=== PATIENT | female | born 1945 | race Caucasian/White ===

== ENCOUNTER 2016-08-24 08:28 | Day surgery (SDC) | payer MEDICARE, BC ==
[~2016-08-24 08:28] MED LIST: RINGERS SOLUTION,LACTATED 1,000 ML IV PRN
--- OUTSIDE RECORDS SUMMARY | 2016-08-24 08:34 | XMS REPORT | Summary of Care ---
:1945 Author Organization [facility] Address [address] [place] [phone]- Care Team Providers Name Role Phone Torsten Cunha Primary Care Physician Encounter Date(s): 10/12/15 - 10/12/[address] [id number] Final: Pain in right hip Discharge Disposition: Discharged to Home or Self Care Attending Physician: Torsten Cunha DO Admitting Physician: Torsten Cunha DO Vital Signs No data available for this section Problem List Condition Effective Dates Status Health Status Informant Hypertension(Confirmed) Active Hyperlipidemia(Confirmed) Active Allergies, Adverse Reactions, Alerts Substance Reaction Severity Status penicillin Active sulfa drugs Active Medications B 100 Complex tab(s), Oral, Daily, 0 Refill(s), Start Date: 08/20/14 15:25:00 CDT Start Date: 08/20/14 Status: OrderedCalcium 600+D tab(s), Oral, TID, 0 Refill(s), Start Date: 08/20/14 15:25:00 CDT Start Date: 08/20/14 Status: OrderedFish Oil oral capsule 1 cap(s), Oral, Daily, # 100 cap(s), 0 Refill(s), Start Date: 08/20/14 15:25:00 CDT Start Date: 08/20/14 Status: Orderedgentamicin 0.3% ophthalmic solution 1 drop(s), OPTH, QID, X 7 days, # 5 mL, 0 Refill(s), Start Date: 11/04/14 11:13: 00 CDT, [facility]: [facility] [place] Start Date: 11/04/14 Stop Date: 11/11/14 Status: Completedgentamicin 0.3% ophthalmic solution 1 drop(s), OPTH, QID, # 5 mL, 0 Refill(s), Start Date: 11/04/14 11:12:00 CDT Start Date: 11/04/14 Stop Date: 11/04/14 Status: Discontinuedhydrochlorothiazide 25 mg oral tablet 1 tab(s), Oral, Daily, # 30 tab(s), 3 Refill(s), [facility] [place] Start Date: 09/10/13 Stop Date: 11/11/13 Status: Discontinuedhydrochlorothiazide 25 mg oral tablet 0.5 tab(s), Oral, Daily, prn, 0 Refill(s), Start Date: 08/20/14 15:24:00 CDT Special Instructions: prn Start Date: 08/20/14 Stop Date: 08/20/14 Status: DiscontinuedLipitor 10 mg oral tablet 1 tab(s), Oral, Daily, # 90 tab(s), 3 Refill(s), Start Date: 10/12/15 9:00:27 CDT, Pharmacy: [place], [place] Start Date: 10/12/15 Status: OrderedLipitor 10 mg oral tablet 1 tab(s), Oral, Daily, # 90 tab(s), 1 Refill(s), Start Date: 08/20/14 16:26:08 CDT, Pharmacy: [place] Start Date: 08/20/14 Stop Date: 03/19/15 Status: CompletedLipitor 10 mg oral tablet 1 tab(s), Oral, Daily, # 30 tab(s), 0 Refill(s), Start Date: 08/15/14 16:41:31 CDT, Pharmacy: [place] Start Date: 08/15/14 Stop Date: 08/20/14 Status: CompletedLipitor 10 mg oral tablet 1 tab(s), Oral, Daily, # 30 tab(s), 0 Refill(s) Start Date: 01/28/14 Stop Date: 01/28/14 Status: DiscontinuedLipitor 10 mg oral tablet 1 tab(s), Oral, Daily, # 30 tab(s), 5 Refill(s), Start Date: 01/28/14 13:13:00 CDT, Pharmacy: [place] Start Date: 01/28/14 Stop Date: 08/15/14 Status: CompletedLipitor 10 mg oral tablet 1 tab(s), Oral, Daily, # 30 tab(s), 0 Refill(s), Start Date: 09/24/15 11:16:12 CDT, Pharmacy: [place] Start Date: 09/24/15 Stop Date: 10/12/15 Status: CompletedLipitor 10 mg oral tablet 1 tab(s), Oral, Daily, # 90 tab(s), 1 Refill(s), Start Date: 03/19/15 13:26:41 CDT, Pharmacy: [place] Start Date: 03/19/15 Stop Date: 09/24/15 Status: Completedlisinopril 10 mg oral tablet 1 tab(s), Oral, Daily, # 90 tab(s), 3 Refill(s), Start Date: 10/12/15 9:00:28 CDT, Pharmacy: [place] Start Date: 10/12/15 Status: Orderedlisinopril 10 mg oral tablet 1 tab(s), Oral, Daily, # 90 tab(s), 1 Refill(s), Start Date: 06/19/15 16:32:40 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, [facility] [place] Start Date: 06/19/15 Stop Date: 09/24/15 Status: Completedlisinopril 10 mg oral tablet 1 tab(s), Oral, Daily, # 90 tab(s), 1 Refill(s), Start Date: 06/19/15 16:32:03 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, [facility] [place] Start Date: 06/19/15 Stop Date: 06/19/15 Status: Completedlisinopril 10 mg oral tablet 1 tab(s), Oral, Daily, # 30 tab(s), 0 Refill(s), Start Date: 09/24/15 11:17:30 CDT, [place]acy: [place] Start Date: 09/24/15 Stop Date: 10/12/15 Status: Completedlisinopril 10 mg oral tablet 1 tab(s), Oral, Daily, # 90 tab(s), 0 Refill(s), Start Date: 03/19/15 13:27:00 CDT, Pharmacy: [place] Start Date: 03/19/15 Stop Date: 06/19/15 Status: Completedlisinopril 5 mg oral tablet 1 tab(s), Oral, Daily, # 30 tab(s), 1 Refill(s), Start Date: 08/20/14 16:27:00 CDT, [facility] [place] Start Date: 08/20/14 Stop Date: 10/08/14 Status: Completedlisinopril 5 mg oral tablet 1 tab(s), Oral, Daily, # 30 tab(s), 1 Refill(s), Start Date: 08/20/14 16:27:00 CDT Start Date: 08/20/14 Stop Date: 08/20/14 Status: Discontinuedlisinopril 5 mg oral tablet 1 tab(s), Oral, Daily, # 90 tab(s), 1 Refill(s), Start Date: 10/08/14 17:07:46 CDT, Pharmacy: [facility] Start Date: 10/08/14 Stop Date: 03/19/15 Status: Discontinuedlisinopril-hydrochlorothiazide 20 mg-25 mg oral tablet 1 tab(s), Oral, Daily, # 90 tab(s), 3 Refill(s), Start Date: 10/12/15 9:00:28 CDT, [place]acy: [place] Start Date: 10/12/15 Status: Orderedlisinopril-hydrochlorothiazide 20 mg-25 mg oral tablet 1 tab(s), Oral, Daily, # 90 tab(s), 1 Refill(s), Start Date: 08/20/14 16:26:37 CDT, Pharmacy: [place] Start Date: 08/20/14 Stop Date: 03/19/15 Status: Completedlisinopril-hydrochlorothiazide 20 mg-25 mg oral tablet 1 tab(s), Oral, Daily, # 30 tab(s), 5 Refill(s), Start Date: 11/11/13 11:28:00 CDT, Pharmacy: [place] Start Date: 11/11/13 Stop Date: 05/12/14 Status: Completedlisinopril-hydrochlorothiazide 20 mg-25 mg oral tablet 1 tab(s), Oral, Daily, # 90 tab(s), 0 Refill(s) Start Date: 11/11/13 Stop Date: 11/11/13 Status: Discontinuedlisinopril-hydrochlorothiazide 20 mg-25 mg oral tablet 1 tab(s), Oral, Daily, # 30 tab(s), 5 Refill(s), Start Date: 05/12/14 13:19:34 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, Pharmacy: [place] Start Date: 05/12/14 Stop Date: 05/12/14 Status: Completedlisinopril-hydrochlorothiazide 20 mg-25 mg oral tablet 1 tab(s), Oral, Daily, # 30 tab(s), 0 Refill(s), Start Date: 09/24/15 11:16:45 CDT, Pharmacy: [facility] Start Date: 09/24/15 Stop Date: 10/12/15 Status: Completedlisinopril-hydrochlorothiazide 20 mg-25 mg oral tablet 1 tab(s), Oral, Daily, # 90 tab(s), 1 Refill(s), Start Date: 03/19/15 13:26:42 CDT, Pharmacy: [facility] Start Date: 03/19/15 Stop Date: 09/24/15 Status: Completedlisinopril-hydrochlorothiazide 20 mg-25 mg oral tablet 1 tab(s), Oral, Daily, # 30 tab(s), 1 Refill(s), Start Date: 05/12/14 14:16:50 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, Pharmacy: [facility] Start Date: 05/12/14 Stop Date: 08/20/14 Status: Completedmultivitamin 1 tab(s), Oral, Daily, 0 Refill(s), Start Date: 08/20/14 15:26:00 CDT Start Date: 08/20/14 Status: Orderedtobramycin 0.3% ophthalmic solution 1 drop(s), OPTH, QID, X 7 days, # 5 mL, 0 Refill(s), Start Date: 11/11/14 11:40: 00 CDT, Pharmacy: [place] Start Date: 11/11/14 Stop Date: 11/18/14 Status: CompletedZetia 10 mg oral tablet 1 tab(s), Oral, Daily, # 90 tab(s), 3 Refill(s), Start Date: 10/12/15 9:00:26 CDT, Pharmacy: [place] Start Date: 10/12/15 Status: OrderedZetia 10 mg oral tablet 1 tab(s), Oral, Daily, # 90 tab(s), 3 Refill(s), Start Date: 06/09/14 9:51:48 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, Pharmacy: [place] Start Date: 06/09/14 Stop Date: 08/20/14 Status: CompletedZetia 10 mg oral tablet 1 tab(s), Oral, Daily, # 30 tab(s), 5 Refill(s), Start Date: 12/09/13 12:35:00 CDT, Pharmacy: [place] Start Date: 12/09/13 Stop Date: 06/05/14 Status: CompletedZetia 10 mg oral tablet 1 tab(s), Oral, Daily, # 30 tab(s), 0 Refill(s) Start Date: 12/09/13 Stop Date: 12/09/13 Status: DiscontinuedZetia 10 mg oral tablet 1 tab(s), Oral, Daily, # 90 tab(s), 1 Refill(s), Start Date: 08/20/14 16:25:34 CDT, Pharmacy: [place] Start Date: 08/20/14 Stop Date: 03/19/15 Status: CompletedZetia 10 mg oral tablet 1 tab(s), Oral, Daily, # 30 tab(s), 0 Refill(s), Start Date: 09/24/15 11:17:05 CDT, Pharmacy: [place] Start Date: 09/24/15 Stop Date: 10/12/15 Status: CompletedZetia 10 mg oral tablet 1 tab(s), Oral, Daily, # 90 tab(s), 3 Refill(s), Start Date: 06/05/14 8:33:28 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, Pharmacy: [place] Start Date: 06/05/14 Stop Date: 06/09/14 Status: CompletedZetia 10 mg oral tablet 1 tab(s), Oral, Daily, # 90 tab(s), 1 Refill(s), Start Date: 03/19/15 13:26:43 CDT, Pharmacy: [place] Start Date: 03/19/15 Stop Date: 09/24/15 Status: Completed Results No data available for this section Immunizations Vaccine Date Refusal Reason influenza virus vaccine, inactivated 02/20/15 influenza virus vaccine, inactivated 03/05/14 Procedures No data available for this section Social History No data available for this section Assessment and Plan No data available for this section
--- OUTSIDE RECORDS SUMMARY | 2016-08-24 08:34 | XMS REPORT | Summary of Care ---
:1945 Author Organization [facility] Address [address] [place] [phone]- Care Team Providers Name Role Phone Torsten Cunha Primary Care Physician Encounter Date(s): 10/12/15 - 10/12/[address] [address] Final: Pain in right hip Discharge Disposition: Discharged to Home or Self Care Attending Physician: Tosrten Cunha DO Admitting Physician: Torsten Cunha DO [...] Date: 11/04/14 11:13: 00 CDT, [place] [facility] [place] Start Date: 11/04/14 Stop Date: 11/11/14 Status: Completedgentamicin 0.3% ophthalmic solution 1 drop(s), OPTH, QID, # 5 mL, 0 Refill(s), Start Date: 11/04/14 11:12:00 CDT Start Date: 11/04/14 Stop Date: 11/04/14 Status: Discontinuedhydrochlorothiazide 25 mg oral tablet 1 tab(s), Oral, Daily, # 30 tab(s), 3 Refill(s), [facility] [place] Start Date: 09/10/13 Stop Date: 11/11/13 Status: Discontinuedhydrochlorothiazide 25 mg oral tablet 0.5 tab(s), Oral, Daily, prn, 0 Refill(s), Start Date: 08/20/14 15:24:00 CDT Special Instructions: prn Start Date: 08/20/14 Stop Date: 08/20/14 Status: DiscontinuedLipitor 10 mg oral tablet 1 tab(s), Oral, Daily, # 90 tab(s), 3 Refill(s), Start Date: 10/12/15 9:00:27 CDT, Pharmacy: [place], [place] Start Date: 10/12/15 Status: OrderedLipitor 10 mg oral tablet 1 tab(s), Oral, Daily, # 90 tab(s), 1 Refill(s), Start Date: 08/20/14 16:26:08 CDT, Pharmacy: [place] Start Date: 08/20/14 Stop Date: 03/19/15 Status: CompletedLipitor 10 mg oral tablet 1 tab(s), Oral, Daily, # 30 tab(s), 0 Refill(s), Start Date: 08/15/14 16:41:31 CDT, Pharmacy: [place] Start Date: 08/15/14 Stop Date: 08/20/14 Status: CompletedLipitor 10 mg oral tablet 1 tab(s), Oral, Daily, # 30 tab(s), 0 Refill(s) Start Date: 01/28/14 Stop Date: 01/28/14 Status: DiscontinuedLipitor 10 mg oral tablet 1 tab(s), Oral, Daily, # 30 tab(s), 5 Refill(s), Start Date: 01/28/14 13:13:00 CDT, Pharmacy: [place] Start Date: 01/28/14 Stop Date: 08/15/14 Status: CompletedLipitor 10 mg oral tablet 1 tab(s), Oral, Daily, # 30 tab(s), 0 Refill(s), Start Date: 09/24/15 11:16:12 CDT, Pharmacy: [place] Start Date: 09/24/15 Stop Date: 10/12/15 Status: CompletedLipitor 10 mg oral tablet 1 tab(s), Oral, Daily, # 90 tab(s), 1 Refill(s), Start Date: 03/19/15 13:26:41 CDT, Pharmacy: [place] Start Date: 03/19/15 Stop Date: 09/24/15 Status: Completedlisinopril 10 mg oral tablet 1 tab(s), Oral, Daily, # 90 tab(s), 3 Refill(s), Start Date: 10/12/15 9:00:28 CDT, Pharmacy: [place] Start Date: 10/12/15 Status: Orderedlisinopril 10 mg oral tablet 1 tab(s), Oral, Daily, # 90 tab(s), 1 Refill(s), Start Date: 06/19/15 16:32:40 AIR BOATSWAIN, [facility] [place] Start Date: 06/19/15 Stop Date: 09/24/15 Status: Completedlisinopril 10 mg oral tablet 1 tab(s), Oral, Daily, # 90 tab(s), 1 Refill(s), Start Date: 06/19/15 16:32:03 AIR BOATSWAIN, [facility] [place] Start Date: 06/19/15 Stop Date: 06/19/15 Status: Completedlisinopril 10 mg oral tablet 1 tab(s), Oral, Daily, # 30 tab(s), 0 Refill(s), Start Date: 09/24/15 11:17:30 CDT, [place]acy[place] Start Date: 09/24/15 Stop Date: 10/12/15 Status: Completedlisinopril 10 mg oral tablet 1 tab(s), Oral, Daily, # 90 tab(s), 0 Refill(s), Start Date: 03/19/15 13:27:00 CDT, [place] Start Date: 03/19/15 Stop Date: 06/19/15 Status: Completedlisinopril 5 mg oral tablet 1 tab(s), Oral, Daily, # 30 tab(s), 1 Refill(s), Start Date: 08/20/14 16:27:00 CDT, [facility] [place] Start Date: 08/20/14 Stop Date: 10/08/14 Status: Completedlisinopril 5 mg oral tablet 1 tab(s), Oral, Daily, # 30 tab(s), 1 Refill(s), Start Date: 08/20/14 16:27:00 CDT Start Date: 08/20/14 Stop Date: 08/20/14 Status: Discontinuedlisinopril 5 mg oral tablet 1 tab(s), Oral, Daily, # 90 tab(s), 1 Refill(s), Start Date: 10/08/14 17:07:46 CDT, Pharmacy: [place] Start Date: 10/08/14 Stop Date: 03/19/15 Status: Discontinuedlisinopril-hydrochlorothiazide 20 mg-25 mg oral tablet 1 tab(s), Oral, Daily, # 90 tab(s), 3 Refill(s), Start Date: 10/12/15 9:00:28 CDT, [place]acy[place] Start Date: 10/12/15 Status: Orderedlisinopril-hydrochlorothiazide 20 mg-25 mg oral tablet 1 tab(s), Oral, Daily, # 90 tab(s), 1 Refill(s), Start Date: 08/20/14 16:26:37 CDT, [place] Start Date: 08/20/14 Stop Date: 03/19/15 Status: Completedlisinopril-hydrochlorothiazide 20 mg-25 mg oral tablet 1 tab(s), Oral, Daily, # 30 tab(s), 5 Refill(s), Start Date: 11/11/13 11:28:00 CDT, [place]acy[place] Start Date: 11/11/13 Stop Date: 05/12/14 Status: Completedlisinopril-hydrochlorothiazide 20 mg-25 mg oral tablet 1 tab(s), Oral, Daily, # 90 tab(s), 0 Refill(s) Start Date: 11/11/13 Stop Date: 11/11/13 Status: Discontinuedlisinopril-hydrochlorothiazide 20 mg-25 mg oral tablet 1 tab(s), Oral, Daily, # 30 tab(s), 5 Refill(s), Start Date: 05/12/14 13:19:34 AIR BOATSWAIN, [place]acy[place] Start Date: 05/12/14 Stop Date: 05/12/14 Status: Completedlisinopril-hydrochlorothiazide 20 mg-25 mg oral tablet 1 tab(s), Oral, Daily, # 30 tab(s), 0 Refill(s), Start Date: 09/24/15 11:16:45 CDT, Pharmacy: [place] Start Date: 09/24/15 Stop Date: 10/12/15 Status: Completedlisinopril-hydrochlorothiazide 20 mg-25 mg oral tablet 1 tab(s), Oral, Daily, # 90 tab(s), 1 Refill(s), Start Date: 03/19/15 13:26:42 CDT, Pharmacy: [place] Start Date: 03/19/15 Stop Date: 09/24/15 Status: Completedlisinopril-hydrochlorothiazide 20 mg-25 mg oral tablet 1 tab(s), Oral, Daily, # 30 tab(s), 1 Refill(s), Start Date: 05/12/14 14:16:50 AIR BOATSWAIN, Pharmacy[place] Start Date: 05/12/14 Stop Date: 08/20/14 Status: Completedmultivitamin 1 tab(s), Oral, Daily, 0 Refill(s), Start Date: 08/20/14 15:26:00 CDT Start Date: 08/20/14 Status: Orderedtobramycin 0.3% ophthalmic solution 1 drop(s), OPTH, QID, X 7 days, # 5 mL, 0 Refill(s), Start Date: 11/11/14 11:40: 00 CDT, [place]acy[place] Start Date: 11/11/14 Stop Date: 11/18/14 Status: CompletedZetia 10 mg oral tablet 1 tab(s), Oral, Daily, # 90 tab(s), 3 Refill(s), Start Date: 10/12/15 9:00:26 CDT, [place]acy[place] Start Date: 10/12/15 Status: OrderedZetia 10 mg oral tablet 1 tab(s), Oral, Daily, # 90 tab(s), 3 Refill(s), Start Date: 06/09/14 9:51:48 AIR BOATSWAIN, [place]acy[place] Start Date: 06/09/14 Stop Date: 08/20/14 Status: CompletedZetia 10 mg oral tablet 1 tab(s), Oral, Daily, # 30 tab(s), 5 Refill(s), Start Date: 12/09/13 12:35:00 CDT, [place]acy[place] Start Date: 12/09/13 Stop Date: 06/05/14 Status: CompletedZetia 10 mg oral tablet 1 tab(s), Oral, Daily, # 30 tab(s), 0 Refill(s) Start Date: 12/09/13 Stop Date: 12/09/13 Status: DiscontinuedZetia 10 mg oral tablet 1 tab(s), Oral, Daily, # 90 tab(s), 1 Refill(s), Start Date: 08/20/14 16:25:34 CDT, [place] Start Date: 08/20/14 Stop Date: 03/19/15 Status: CompletedZetia 10 mg oral tablet 1 tab(s), Oral, Daily, # 30 tab(s), 0 Refill(s), Start Date: 09/24/15 11:17:05 CDT, [place] Start Date: 09/24/15 Stop Date: 10/12/15 Status: CompletedZetia 10 mg oral tablet 1 tab(s), Oral, Daily, # 90 tab(s), 3 Refill(s), Start Date: 06/05/14 8:33:28 AIR BOATSWAIN, Pharmacy: [place] Start Date: 06/05/14 Stop Date: 06/09/14 Status: CompletedZetia 10 mg oral tablet 1 tab(s), Oral, Daily, # 90 tab(s), 1 Refill(s), Start Date: 03/19/15 13:26:43 CDT, Pharmacy: [place] Start Date: 03/19/15 Stop Date: 09/24/15 Status: Completed Results No data available for this section Immunizations Vaccine Date Refusal Reason influenza virus vaccine, inactivated 02/20/15 influenza virus vaccine, inactivated 03/05/14 Procedures No data available for this section Social History No data available for this section Assessment and Plan No data available for this section
[2016-08-24] MEDS ORDERED: RINGERS SOLUTION,LACTATED 1,000 ML IV ONE (09:14)
[2016-08-24] MEDS ORDERED: RINGERS SOLUTION,LACTATED 1,000 ML IV PRN (11:10)
[2016-08-24 12:00] VITALS: BP 145/65
--- NOTE | 2016-08-24 12:13 | OR ---
Operative Report - Dictated Report Narrative: OPERATIVE REPORT DATE OF OPERATION: 08/24/2016 PREOPERATIVE DIAGNOSIS: No prior dedicated colon studies. POSTOPERATIVE DIAGNOSIS: Two 3-4mm rectal polyps (pathology pending). 3 additional hyperplastic appearing sigmoid polyps and single 2 mm polypoid area in the cecum (destroyed) OPERATION: Colonoscopy with hot biopsy forceps polypectomies 6 SURGEON: Estrella Farrar MD ANESTHESIA: NENA Henderson CRNA INDICATIONS FOR PROCEDURE: The patient is a 70-year-old female referred by Dr. Cunha. The patient has had no previous dedicated colon studies. There is no family history of colon cancer. She has a tendency to constipation. FINDINGS: Two 3-4 mm polyps in the rectum (biopsied and destroyed) with 3 additional 2 mm areas of polypoid change sigmoid and a 2 mm area of polypoid change cecum which were destroyed in place. NARRATIVE OF PROCEDURE: The patient was identified in the holding area, and prior to the administration of anesthetic, a multidisciplinary timeout was observed. With the patient in the left lateral position and after the administration of intravenous sedation, the perineum was inspected. There was no evidence of pilonidal disease or skin breakdown. The external appearance of the anus was normal. Sphincter tone was good. The flexible fiberoptic colonoscope was inserted into the rectum which was insufflated with air. The rectal mucosa and submucosal vascular pattern appeared normal, the prep was seen to be complete. In the low rectum were two 3-4mm areas of polypoid change which were biopsied and then thoroughly destroyed with electrocautery. Both sites were seen to be complete and hemostatic. At approximately 15 cm 3 additional very small areas of hyperplastic appearing polypoid change were encountered. These were simply destroyed in place with electrocautery. The scope was advanced through the sigmoid colon, up the descending colon, and around the splenic flexure where the triangular haustral architecture of the transverse colon was seen. The scope was advanced across the transverse colon, around the hepatic flexure to the cecum, where the confluence of tenia and the ileocecal valve were identified. The mucosa at this level appeared normal. There was one 2 mm area of possible hyperplastic polypoid change in the cecum which was simply destroyed in place with electrocautery. The scope was then slowly withdrawn in a circular fashion so that all aspects of colonic mucosa were inspected. The colon was very capacious in character. The haustral architecture appeared well preserved throughout with no evidence of external compression. The mucosa and submucosal vascular pattern appeared normal, specifically there was no gross evidence to suggest colitis or inflammatory bowel disease and no AV malformations were seen. No diverticulosis was demonstrated. The scope was gradually withdrawn to the level of the rectum. As much insufflated air as possible was removed. The scope was withdrawn from the patient and the procedure terminated. The patient tolerated the anesthetic and procedure well without complication and was transferred back to the ambulatory surgery area awake and in stable condition. The patient remained stable throughout a period of postoperative observation. She denied abdominal discomfort, was able to tolerate by mouth intake, and was up without assistance. I shared the operative findings with the patient and she was given copies of the photographs which appear in the medical record. She was discharged home with instructions not to engage in hazardous activity today , but may resume normal activity tomorrow, and advance diet as tolerated. She is to continue those medications as listed in the history and physical exam. I made arrangements to contact her with the biopsy reports and will make additional recommendations for treatment and follow-up based upon those results. Reviewed and electronically signed
== END 2016-08-24 08:29 | disposition home or self-care (01) ==
LOC: AMB 08:28
PROVIDERS: ATTEND Surgery
PROC: 0DBN8ZX Excision of Sigmoid Colon, Via Natural or Artificial Opening Endoscopic, Diagnostic (ICD-10-PCS; 2016-08-24)
PROC: 0DBP8ZX Excision of Rectum, Via Natural or Artificial Opening Endoscopic, Diagnostic (ICD-10-PCS; 2016-08-24)
PROC: 0DBH8ZX Excision of Cecum, Via Natural or Artificial Opening Endoscopic, Diagnostic (ICD-10-PCS; principal; 2016-08-24 09:45)
DX: Z12.11 Encounter for screening for malignant neoplasm of colon (principal); K62.1 Rectal polyp; D12.0 Benign neoplasm of cecum; D12.5 Benign neoplasm of sigmoid colon; I10 Essential (primary) hypertension; E78.5 Hyperlipidemia, unspecified; E66.9 Obesity, unspecified; Z68.36 Body mass index [BMI] 36.0-36.9, adult; Z87.891 Personal history of nicotine dependence